=== PATIENT | female | born 1960 | race African-American/Black ===

== ENCOUNTER 2021-02-08 19:17 | Emergency (ER) | payer MEDICARE, MEDICAID ==
[~2021-02-08] VITALS: Ht 170.2 cm; Wt 80.3 kg
[~2021-02-08 19:17] MED LIST: ABILIFY10 MG PO; CLARITIN10 MG PO; CYCLOBENZAPRINE5 MG PO; FLEXERIL PO; HYDROCODON-ACE1 EAC7 PO; HYDROCODONE-AP1 EAC6 PO; IBUPROFEN 800800 M1 PO; LISINOPRIL20 MG PO; MEDROLDOSEPACK PO; NORCO 5-325 TA1 EACH PO; TENORMIN25 MG PO; TRAMADOL 50 MG50 MG PO; ULTRAM 50MG TAB50 MG PO; [UNRECOGNIZED DRUG - OTHER]
[2021-02-08] MEDS ORDERED: LASIX 40 MG TAB40 MG PO (19:45)
[2021-02-08] MEDS ORDERED: LIPITOR10 MG PO (19:46)
[2021-02-08] MEDS ORDERED: CARVEDILOL12.5 MG PO (19:47)
[2021-02-08] MEDS ORDERED: NORCO5 PO ×2 (20:16→20:52)
[2021-02-08 20:59] VITALS: BP 156/94
== END 2021-02-08 20:59 | disposition home or self-care (01) ==
LOC: M.ERS 19:17
DX: G56.01 Carpal tunnel syndrome, right upper limb (principal); M79.641 Pain in right hand; I10 Essential (primary) hypertension; F32.9 Major depressive disorder, single episode, unspecified; Z79.899 Other long term (current) drug therapy; Z90.710 Acquired absence of both cervix and uterus; Z91.09 Other allergy status, other than to drugs and biological substances; Z88.6 Allergy status to analgesic agent; Z88.8 Allergy status to other drugs, medicaments and biological substances